=== PATIENT | female | born 1990 | race Caucasian/White ===

== ENCOUNTER 2016-05-29 17:59 | Emergency (ER) | payer OTHER ==
[~2016-05-29] VITALS: Ht 165.1 cm; Wt 56.2 kg
[~2016-05-29 17:59] MED LIST: ACHD5005 PO; DCS100C PO; FRS325T PO; IBP600T1 PO; PREN-115 PO; SULF1TAB35 PO
--- NOTE | 2016-05-29 18:14 | ED GI ---
General Chief Complaint: Abdominal/GI Problems Stated Complaint: VOMITING Source of Information: Patient Exam Limitations: No Limitations History of Present Illness Time Seen By Provider: 18:12 Initial Comments To ER with reports of persistent nausea vomiting since 2 a.m. this morning. She reports diffuse body aches, but no abdominal pain. She denies diarrhea. She has had a cough for about 2 weeks that is productive. She finished a course of Zithromax about one week ago. Prior to that he was on a course of different antibiotics for a urinary tract infection. She is 12 weeks gestation[address] She saw Dr. Liu on 05/25/15 and was told everything looked okay. Up until today she's had no problems with nausea. She denies any vaginal bleeding or abdominal cramping. Timing/Duration: 12 Hours Severity/Quality: Moderate Radiation: No Radiation Associated Symptoms: Nausea/Vomiting Allergies and Home Medications Allergies Coded Allergies: sulfamethoxazole (Verified Allergy, Severe, 05/29/16) trimethoprim (Verified Allergy, Severe, 05/29/16) Home Medications Sulfamethoxazole/Trimethoprim 1 Each Tablet 1 EACH PO BID (Reported) Review of Systems Constitutional: see HPI EENTM: No Symptoms Reported Respiratory: No Symptoms Reported Cardiovascular: No Symptoms Reported Gastrointestinal: See HPI Abdominal PainDenies Constipated, Denies Diarrhea, Nausea Genitourinary: No Symptoms Reported Musculoskeletal: no symptoms reported Skin: no symptoms reported Psychiatric/Neurological: No Symptoms Reported Endocrine: No Symptoms Reported Past Ykrmkmy-Uxxabh-Ydngbw Hx Patient Social History Alcohol Use: Denies Use Recreational Drug Use: No Smoking Status: Never a Smoker 2nd Hand Smoke Exposure: No Recent Foreign Travel: No Contact w/Someone Who Travel: No Recent Hopitalizations: No Immunizations Up To Date Tetanus Booster (TDap): Unknown PED Vaccines UTD: No Date of Influenza Vaccine: Mar 23, 2012 Surgeries HX Surgeries: Yes Surgeries: Section Respiratory Hx Respiratory Disorders: No Cardiovascular Hx Cardiac Disorders: No Neurological Hx Neurological Disorders: No Reproductive System Hx Reproductive Disorders: No Genitourinary Hx Genitourinary Disorders: No Gastrointestinal Hx Gastrointestinal Disorders: No Musculoskeletal Hx Musculoskeletal Disorders: No Endocrine Hx Endocrine Disorders: No HEENT HX ENT Disorders: No Cancer Hx Cancer: No Psychosocial Hx Psychiatric Problems: No Integumentary HX Skin/Integumentary Disorder: No Blood Transfusions Hx Blood Disorders: No Family Medical History Significant Family History: No Pertinent Family Hx Physical Exam Vital Signs VS - Last 72 Hours, by Label 05/29/16 18:07 Temp 97.7 Pulse 109 Resp 18 B/P 124/78 Pulse Ox 98 O2 Delivery Room Air Capillary Refill : General Appearance: WD/WN no apparent distress HEENT: PERRL/EOMI normal ENT inspection Neck: non-tender full range of motion Respiratory: no respiratory distress no accessory muscle use Gastrointestinal: normal bowel sounds non tender soft Extremities: normal range of motion non-tender Neurologic/Psychiatric: alert normal mood/affect oriented x 3 Skin: normal color warm/dry Progress/Results/Core Measures Results/Orders Lab Results Laboratory Tests Test 05/29/16 18:07 Range/Units Alanine Aminotransferase (ALT/SGPT) 38 0-55 U/L Albumin 4.0 3.2-4.5 G/DL Alkaline Phosphatase 79 40-136 U/L Anion Gap 11 5-14 MMOL/L Aspartate Amino Transf (AST/SGOT) 34 5-34 U/L BUN/Creatinine Ratio 14 Basophils # (Auto) 0.0 0.0-0.1 10^3/uL Basophils (%) (Auto) 0 0-10 % Blood Urea Nitrogen 9 7-18 MG/DL Calcium Level 8.5 8.5-10.1 MG/DL Carbon Dioxide Level 21 21-32 MMOL/L Chloride Level 102 98-107 MMOL/L Creatinine 0.64 0.60-1.30 MG/DL Eosinophils # (Auto) 0.0 0.0-0.3 10^3/uL Eosinophils (%) (Auto) 0 0-10 % Estimat Glomerular Filtration Rate > 60 Glucose Level 88 70-105 MG/DL Hematocrit 38 35-52 % Hemoglobin 13.9 11.5-16.0 G/DL Human Chorionic Gonadotropin, Quant [id number] H <5 MIU/ML Lipase 20 8-78 U/L Lymphocytes # (Auto) 1.2 1.0-4.0 X 10^3 Lymphocytes (%) (Auto) 13 12-44 % Mean Corpuscular Hemoglobin 29 25-34 PG Mean Corpuscular Hemoglobin Concent 37 H 32-36 G/DL Mean Corpuscular Volume 80 80-99 FL Mean Platelet Volume 10.1 7.4-10.4 FL Monocytes # (Auto) 0.5 0.0-1.0 X 10^3 Monocytes (%) (Auto) 6 0-12 % Neutrophils # (Auto) 8.1 H 1.8-7.8 X 10^3 Neutrophils (%) (Auto) 82 H 42-75 % Platelet Count 213 130-400 10^3/uL Potassium Level 3.5 L 3.6-5.0 MMOL/L Red Blood Count 4.78 4.35-5.85 10^6/uL Red Cell Distribution Width 13.0 10.0-14.5 % Sodium Level 134 L 135-145 MMOL/L Total Bilirubin 0.9 0.1-1.0 MG/DL Total Protein 7.1 6.4-8.2 G/DL Urine Bacteria TRACE /HPF Urine Bilirubin NEGATIVE NEGATIVE Urine Casts NONE /LPF Urine Clarity VERY CLOUDY H Urine Color YELLOW Urine Crystals NONE /LPF Urine Culture Indicated NO Urine Glucose (UA) NEGATIVE NEGATIVE Urine Ketones 4+ H NEGATIVE Urine Leukocyte Esterase 1+ H NEGATIVE Urine Mucus SMALL H /LPF Urine Nitrite NEGATIVE NEGATIVE Urine Protein 1+ H NEGATIVE Urine RBC NONE /HPF Urine RBC (Auto) NEGATIVE NEGATIVE Urine Specific [place]ester 1.020 1.016-1.022 Urine Squamous Epithelial Cells 10-25 H /HPF Urine Urobilinogen NORMAL NORMAL MG/DL Urine WBC 0-2 /HPF Urine pH 6 5-9 White Blood Count 9.9 4.3-11.0 10^3/uL Micro Results Microbiology 05/29/16 Influenza Types A,B Antigen (LY) - Final, Complete My Orders Orders-ALCON AZAR REDRYING MACHINE OPERATOR Cbc With Automated Diff (05/29/16 18:11) Lipase (05/29/16 18:11) Ua Culture If Indicated (05/29/16 18:11) Hcg,Quantitative (05/29/16 18:11) Comprehensive Metabolic Panel (05/29/16 18:11) Saline Lock/Iv-Start (05/29/16 18:11) Ns Iv 1000 Ml (Sodium Chloride 0.9%) (05/29/16 18:15) Ondansetron Injection (Zofran Injectio (05/29/16 18:15) Influenza A And B Antigens (05/29/16 18:14) Medications Given in ED Current Medications Medications Dose Ordered Sig/Dc Route Start Time Stop Time Status Last Admin Dose Admin Ondansetron HCl 8 mg ONCE ONCE IVP 05/29/16 18:15 2/25/17 18:16 DC 05/29/16 18:17 8 MG Vital Signs/I&O Vital Sign - Last 12Hours 05/29/16 18:07 Temp 97.7 Pulse 109 Resp 18 B/P 124/78 Pulse Ox 98 O2 Delivery Room Air Departure Impression Impression: Primary Impression: Nausea and vomiting Disposition: 01 HOME, SELF-CARE Condition: Stable Departure-Patient Inst. Decision time for Depature: 19:28 Referrals: [facility] (PCP/Family) Primary Care Physician Patient Instructions: Nausea and Vomiting, Adult Add. Discharge Instructions: 1. Return to ER for any concerns 2. Follow up with Dr Liu this week .All discharge instructions reviewed with patient and/or family. Voiced understanding. Copy Copies To 1: CHRISTIAN LIU MD, PETER J APRN May 29, 2016 18:14
[2016-05-29] MEDS ORDERED: NS IV 1000 ML 1,000 ML IV SCH (18:15)
[2016-05-29] MEDS ORDERED: ONDANSETRON 4 MG/2 ML (SDV) Z0FRAN IVP ONE (18:15)
[2016-05-29 18:16] LABS: BASOPHILS % (AUTO) 0 % (0-10); EOSINOPHILS % (AUTO) 0 % (0-10); KETONES,URINE 4+ (NEGATIVE); LEUKOCYTE ESTERASE ,URINE 1+ (NEGATIVE); LYMPHOCYTES # (AUTO) 1.2 X 10^3 (1.0-4.0); LYMPHOCYTES % (AUTO) 13 % (12-44); MEAN CORPUSCULAR HEMOGLOBIN 29 PG (25-34); MEAN CORPUSCULAR HGB CONC 37 G/DL (32-36); MEAN CORPUSCULAR VOLUME 80 FL (80-99); MEAN PLATELET VOLUME 10.1 FL (7.4-10.4); MONOCYTES # (AUTO) 0.5 X 10^3 (0.0-1.0); MONOCYTES % (AUTO) 6 % (0-12); NEUTROPHILS # (AUTO) 8.1 X 10^3 (1.8-7.8); NEUTROPHILS % (AUTO) 82 % (42-75); NITRITE,URINE NEGATIVE (NEGATIVE); PH,URINE 6 (5-9); PLATELET COUNT 213 10^3/uL (130-400); PROTEIN,URINE 1+ (NEGATIVE); RED BLOOD COUNT 4.78 10^6/uL (4.35-5.85); UROBILINOGEN,URINE NORMAL (NORMAL); WHITE BLOOD COUNT 9.9 10^3/uL (4.3-11.0)
[2016-05-29 18:30] LABS: BILIRUBIN,URINE NEGATIVE (NEGATIVE); WBC,URINE 0-2 /HPF
[2016-05-29 18:32] LABS: ALANINE AMINOTRANSFERASE 38 U/L (0-55); ANION GAP 11 MMOL/L (5-14); ASPARTATE AMINO TRANSFERASE 34 U/L (5-34); BILIRUBIN,TOTAL 0.9 MG/DL (0.1-1.0); BLOOD UREA NITROGEN 9 MG/DL (7-18); BUN/CREATININE RATIO 14; CALCIUM 8.5 MG/DL (8.5-10.1); CARBON DIOXIDE 21 MMOL/L (21-32); CHLORIDE 102 MMOL/L (98-107); CREATININE SERUM 0.64 MG/DL (0.60-1.30); GFR ESTIMATED > 60; GLUCOSE 88 MG/DL (70-105); LIPASE 20 U/L (8-78); POTASSIUM 3.5 MMOL/L (3.6-5.0); SODIUM 134 MMOL/L (135-145); TOTAL PROTEIN 7.1 G/DL (6.4-8.2)
[2016-05-29 19:42] VITALS: BP 127/74
== END 2016-05-29 19:42 | disposition home or self-care (01) ==
LOC: EDUNIT# 17:59 → ER 18:01
DX: O21.0 Mild hyperemesis gravidarum (principal); Z3A.12 12 weeks gestation of pregnancy
CPT/HCPCS: 36415; 80053; 81000; 83690; 84702; 85025; 87804; 96361; 96374

== ENCOUNTER 2021-02-17 05:33 | Outpatient (CLI) | payer OTHER ==
[~2021-02-17] VITALS: Ht 165.1 cm; Wt 66.8 kg
[~2021-02-17 05:33] MED LIST changes: -SULF1TAB35 PO; +SULF1TAB38 PO
[2021-02-17] MEDS ORDERED: PNV1TABL94 PO (12:38)
[2021-02-24] MEDS ORDERED: ACHD5005 PO (12:26)
[2021-02-24] MEDS ORDERED: IBUP-844 PO (12:26)
[2021-02-24] MEDS ORDERED: DOCU100C37 PO (12:26)
== END 2021-02-17 12:40 ==
LOC: PREOP 05:33
PROVIDERS: ATTEND Obstetrics & Gynecology
DX: Z01.818 Encounter for other preprocedural examination (principal); O34.219 Maternal care for unspecified type scar from previous cesarean delivery; Z3A.00 Weeks of gestation of pregnancy not specified

== ENCOUNTER 2021-02-24 09:54 | Inpatient (IN) | payer OTHER ==
[~2021-02-24] VITALS: Ht 168 cm; Wt 68.0 kg
[2021-02-24] VITALS (9 sets, daily range): BP systolic 97–122; BP diastolic 54–83
[~2021-02-24 09:54] MED LIST changes: +PNV1TABL94 PO
[2021-02-24] MEDS ORDERED: FAMOTIDINE 20MG/2ML IV (PEPCID) IV ONE (10:15)
[2021-02-24] MEDS ORDERED: METOCLOPRAMIDE INJ 10 MG/2 ML (REGLAN) IV ONE (10:15)
[2021-02-24] MEDS ORDERED: CITRIC ACID/SOB CIT (BICITRA) 30 ML UDC PO ONE (10:15)
[2021-02-24] MEDS ORDERED: LACTATED RINGERS 1,000 ML IV PRN (10:15)
[2021-02-24] MEDS ORDERED: ceFAZolin 2 GM IV Premixed 50 ML IV ONE (10:15)
[2021-02-24 10:38] LABS: BASOPHILS % (AUTO) 0 % (0-10); EOSINOPHILS % (AUTO) 0 % (0-10); HEMATOCRIT 36 % (35-52); HEMOGLOBIN 12.9 g/dL (11.5-16.0); LYMPHOCYTES % (AUTO) 24 % (12-44); MEAN CORPUSCULAR HEMOGLOBIN 30 pg (25-34); MEAN CORPUSCULAR HGB CONC 36 g/dL (32-36); MEAN CORPUSCULAR VOLUME 84 fL (80-99); MEAN PLATELET VOLUME 11.5 fL (9.0-12.2); MONOCYTES # (AUTO) 0.5 10^3/uL (0.0-1.0); MONOCYTES % (AUTO) 6 % (0-12); NEUTROPHILS # (AUTO) 5.7 10^3/uL (1.8-7.8); NEUTROPHILS % (AUTO) 69 % (42-75); PLATELET COUNT 254 10^3/uL (130-400); WHITE BLOOD COUNT 8.3 10^3/uL (4.3-11.0)
[2021-02-24] MEDS ORDERED: ROPIVACAINE 5MG/ML 30ML VIAL ONE (11:53)
[2021-02-24] MEDS ORDERED: fentaNYL INJ 100 MCG/2 ML AMP ONE (11:54)
[2021-02-24] MEDS ORDERED: ONDANSETRON 4 MG/2 ML (SDV) Z0FRAN IVP PRN ×2 (12:15→12:30)
[2021-02-24] MEDS ORDERED: HYDROmorphone 2 MG/ML VIAL (DILAUDID) IV ONE (12:15)
--- NOTE | 2021-02-24 12:24 | History & Physical-OB ---
OB - Chief Complaint & HPI Date/Time Date of Admission: Date of Admission: Feb 24, 2021 at 09:54 Date seen by a Provider: Feb 24, 2021 Time Seen by a Provider: 12:05 Chief Complaint/History OB-Reason for Admission/Chief: Section Hx : 3 Hx Para: 2 Expected Date of Delivery: Mar 03, 2021 Gestational Age in Weeks: 39 Gestational Age in Days: 0 Indication for : desires repeat Admission Nurse Assessment Rev: Yes Allergies and Home Medications Allergies Coded Allergies: sulfamethoxazole (Verified Allergy, Severe, 05/29/16) trimethoprim (Verified Allergy, Severe, 05/29/16) Patient Home Medication List Home Medication List Reviewed: Yes Pnv No.121/Iron/Folic Acid ( Multivitamin Tablet) 1 Each Tablet, 1 EACH PO DAILY, (Reported) Entered as Reported by: ELIANE FOFANA on 02/17/21 1238 Discontinued Medications Sulfamethoxazole/Trimethoprim (Bactrim Ds Tablet) 1 Each Tablet, 1 EACH PO BID, (Reported) Discontinued Reason: No Longer Taking Entered as Reported by: VIANCA DAVIES on 01/12/15 2223 OB - History Hx of Present Care: Yes Ultrasounds: Normal mid trimester US Obstetrical Complications: None Medical Complications: None Obstetrical History Hx Termination: No Hx Multiple Gestation: No Hx Stillbirth: No Hx Complication: No Hx Induced Hypertens: No Hx Maternal Gestational Diabet: No Delivery History Hx Blood Disorders: No Patient Past Medical History n/a Social History/Family History 2nd Hand Smoke Exposure: No Immunizations Hepatitis A: No Hepatitis B: No Tetanus Booster (TDap): Unknown Date of Influenza Vaccine: Mar 23, 2012 OB - Admission Exam Physical Exam Vitals: Vital Signs 02/24/21 10:05 Temp 36.6 Pulse 86 Resp 18 Pulse Ox 98 O2 Delivery Room Air HEENT: NCAT Heart: Rhythm Normal Lungs: Clear Abdomen: Gravid Extremities: Normal Reflexes: Normal Heart Rate: 130's Accelerations: Accelerations Present Decelerations: No Decelerations Short Term Variability: Present Missile Pad Mechanic Variability: Average (6-25) Labs Laboratory Tests Test 02/24/21 10:10 Range/Units White Blood Count 8.3 4.3-11.0 10^3/uL Red Blood Count 4.30 3.80-5.11 10^6/uL Hemoglobin 12.9 11.5-16.0 g/dL Hematocrit 36 35-52 % Mean Corpuscular Volume 84 80-99 fL Mean Corpuscular Hemoglobin 30 25-34 pg Mean Corpuscular Hemoglobin Concent 36 32-36 g/dL Red Cell Distribution Width 11.9 10.0-14.5 % Platelet Count 254 130-400 10^3/uL Mean Platelet Volume 11.5 9.0-12.2 fL Immature Granulocyte % (Auto) 1 % Neutrophils (%) (Auto) 69 42-75 % Lymphocytes (%) (Auto) 24 12-44 % Monocytes (%) (Auto) 6 0-12 % Eosinophils (%) (Auto) 0 0-10 % Basophils (%) (Auto) 0 0-10 % Neutrophils # (Auto) 5.7 1.8-7.8 10^3/uL Lymphocytes # (Auto) 2.0 1.0-4.0 10^3/uL Monocytes # (Auto) 0.5 0.0-1.0 10^3/uL Eosinophils # (Auto) 0.0 0.0-0.3 10^3/uL Basophils # (Auto) 0.0 0.0-0.1 10^3/uL Immature Granulocyte # (Auto) 0.1 0.0-0.1 10^3/uL OB - Assessment/Plan/Diagnosis Assessment Assessment: section Admission Dx 30 yo @ 39 weeks Previous x 2 Admission Status: Inpatient Order (span 2 midnights) Reason for Inpatient Admission: Repeat Plan Plan: Section AYSE ZAMORA DO Feb 24, 2021 12:24
--- NOTE | 2021-02-24 12:25 | Discharge Inst-Women's Service ---
Discharge Inst-Women's Serv Depart Medication/Instructions New, Converted or Re-Newed RX: RX on Chart Final Diagnosis POD 2 RLTCS Problems Reviewed?: Yes Consults/Follow Up Additional Follow Up: Yes Orders/Referrals Dr. Dawson in 7-10 days and in 6 weeks Activity Activity: Activity as Tolerated Driving Instructions: No Driving for 1 Week NO SMOKING: NO SMOKING Nothing Inside Vagina: No Douching, No [place], No Tampons Diet Discharge Diet: No Restrictions Symptoms to Report to : Bleeding Excessive, Pain Increased, Fever Over 101 Degrees F, Vaginal Bleeding Increase, Questions/Concerns For Any Problems or Questions: Contact Your Physician Skin/Wound Care Infection Signs and Symptoms: Increased Redness, Foul Odor of Wound, Increased Drainage, Skin Itchy or Has a Rash, Increased Swelling, Temperature Above 101 F Operative Area Clean and Dry: Keep Incision Clean/Dry Stitches/[place]/Dermabond: Dermabond, Care of Stitches Bathing Instructions: AYSE Nieto DO Feb 24, 2021 12:25
[2021-02-24] MEDS ORDERED: IBUP-844 PO (12:26)
[2021-02-24] MEDS ORDERED: ACHD5005 PO (12:26)
[2021-02-24] MEDS ORDERED: DOCU100C37 PO (12:26)
[2021-02-24] MEDS ORDERED: MEASLES,MUMPS,RUBELLA 1 EA INJ SC SCH (12:30)
[2021-02-24] MEDS ORDERED: NALOXONE 0.4 MG/ML 1 ML (NARCAN) VIAL IV PRN (12:30)
[2021-02-24] MEDS ORDERED: TETANUS,DIPTH,PERTUSS P/F (BOOSTRIX) 0.5 ML VIAL IM SCH (12:30)
[2021-02-24] MEDS ORDERED: ONDANSETRON 4 MG/2 ML (SDV) Z0FRAN ONE (12:52)
[2021-02-24] MEDS ORDERED: KETOROLAC 30 MG/ML VIAL ONE (12:53)
[2021-02-24] MEDS: OXYTOCIN PRE-MIX DRIP 500 ML IV SCH ×2 (13:42→17:37)
[2021-02-24] MEDS: KETOROLAC 30 MG/ML VIAL IV SCH (18:41)
[2021-02-24] MEDS: DOCUSATE SODIUM 100 MG (COLACE) CAP PO SCH (21:10)
--- NOTE | 2021-02-24 21:18 | OPERATIVE REPORT ---
DATE OF SERVICE: PREOPERATIVE DIAGNOSES: 1. A 30-year-old G3, P2 at 39 weeks gestation. 2. Previous section. POSTOPERATIVE DIAGNOSES: 1. A 30-year-old G3, P2 at 39 weeks gestation. 2. Previous section. PROCEDURE: Repeat low transverse section. SURGEON: Danny Zamora DO ANESTHESIA: Spinal. SWING FRAME GRINDER OPERATOR: Christiana Ruiz DNP, was necessary for manipulation and retraction throughout the procedure. ESTIMATED BLOOD LOSS: 600 mL. URINE OUTPUT: 225 mL clear at the end of the procedure. FLUIDS: 500 mL lactated Ringer's solution. FINDINGS: A live male weighing 7 pounds 14 ounces, Apgars of 9 and 9. Grossly normal appearing uterus, bilateral fallopian tubes and ovaries. SPECIMEN SENT: None. INDICATIONS FOR PROCEDURE: This 30-year-old female is a patient who had sought care in our office. Her care was uncomplicated with the exception of wanting to proceed with repeat . She was scheduled at 39 weeks. Risks of the procedure were discussed with the patient in detail both in her preoperative consultation and in the preoperative area prior to surgery. After all her questions were answered, consent was obtained and the patient was taken to the operating room. OPERATIVE REPORT IN DETAIL: Once in the operating room, spinal analgesia was found to be adequate, placed in supine position with leftward tilt, prepped and draped in normal sterile fashion. A timeout was performed and anesthesia was tested. I then proceeded with making a Pfannenstiel skin incision through the previously existing scar using a knife and carried down to underlying fascia using Bovie cautery. The fascial incision extended laterally using Bovie cautery. Superior aspect of fascial incision was then grasped with Elisa clamps, tented up and dissected off the underlying rectus muscles. The inferior aspect of fascial incision was then grasped with Elisa clamps, tented up and dissected off the underlying rectus muscles. The rectus muscles were dissected down the midline using sharp dissection, which exposed the peritoneum, which I entered bluntly and extended using blunt traction. An Naldo ring retractor was placed in the peritoneal incision, which offered excellent lateral sidewall retraction. I identified the lower uterine segment, which was found to be thinned out and make a low transverse incision to the vesicouterine peritoneum and bluntly dissected off the lower uterine segment, creating a bladder flap. I then proceeded with my myotomy until membranes were visualized, at which point I extended the uterine incision laterally and superiorly using bandage scissors. Amniotomy was then performed using an Allis clamp. Clear fluid was noted. The infant was found in vertex presentation. With gentle fundal pressure, the infant's head was elevated up to the incision where it was delivered through the incision. The nares and oropharynx were bulb suctioned. Nuchal cord was reduced x1. Anterior and posterior shoulders were delivered. The was then brought to the operative field with cord doubly clamped and cut and infant was handed off to waiting nurses in attendance. Cord blood was collected. Three-vessel cord with intact placenta was delivered spontaneously thereafter. IV Pitocin is initiated to facilitate uterine contraction. Uterine fundus confirmed by manual massage. The uterus was then exteriorized and cleared of all endometrial clots and debris. I then proceeded with closing the uterine incision using 0 Vicryl suture in running locked fashion. Second layer of imbricating 0 Monocryl was placed. Excellent hemostasis was noted after doing this. I then placed the uterus back in the pelvis and copiously irrigated the pelvis using normal saline. Once again, there was no active bleeding noted from any of my dissection planes. I placed Interceed antiadhesive over my low transverse incision. I removed the Naldo ring retractor and proceeded with closing the peritoneum using 3-0 Vicryl suture in running fashion. The rectus muscle reapproximated using 3-0 Vicryl suture in interrupted fashion. The fascia was reapproximated using 0 Vicryl suture in a running fashion. Subcutaneous tissue is very thin; therefore, I just proceeded with closing the skin using 4-0 Monocryl running subcuticular. Dermabond was applied to incision and sterile dressing with adhesive white tape. The patient tolerated the procedure well and sent to recovery area in stable condition. Lap and sponge counts were correct at the end of the procedure. Instrument counts correct as well. Two grams of Ancef given preoperatively for infection prophylaxis. Job ID: [id number] DocumentID: [id number] Dictated Date: 02/24/2021 13:32:27 Ed Case Manager Date: 02/24/2021 21:17:17 Dictated By: DANNY ZAMORA DO
[2021-02-24] MEDS: HYDROcodone/APAP 5 MG/325 MG (LORTAB) TAB PO PRN (23:27)
[2021-02-25] MEDS: KETOROLAC 30 MG/ML VIAL IV SCH ×2 (01:26→06:54)
[2021-02-25 04:10] VITALS: BP 120/58
[2021-02-25] MEDS: HYDROcodone/APAP 5 MG/325 MG (LORTAB) TAB PO PRN ×3 (05:29→20:29)
[2021-02-25 06:55] LABS: BASOPHILS % (AUTO) 0 % (0-10); EOSINOPHILS % (AUTO) 0 % (0-10); HEMATOCRIT 31 % (35-52); HEMOGLOBIN 10.9 g/dL (11.5-16.0); LYMPHOCYTES # (AUTO) 2.2 10^3/uL (1.0-4.0); LYMPHOCYTES % (AUTO) 24 % (12-44); MEAN CORPUSCULAR HEMOGLOBIN 30 pg (25-34); MEAN CORPUSCULAR HGB CONC 35 g/dL (32-36); MEAN CORPUSCULAR VOLUME 87 fL (80-99); MEAN PLATELET VOLUME 11.8 fL (9.0-12.2); MONOCYTES # (AUTO) 0.5 10^3/uL (0.0-1.0); MONOCYTES % (AUTO) 5 % (0-12); NEUTROPHILS # (AUTO) 6.4 10^3/uL (1.8-7.8); NEUTROPHILS % (AUTO) 69 % (42-75); PLATELET COUNT 191 10^3/uL (130-400); WHITE BLOOD COUNT 9.3 10^3/uL (4.3-11.0)
--- NOTE | 2021-02-25 07:26 | Postpartum Progress Note ---
Note Note Day # 1 Subjective: Patient is without complaints. Ambulating, voiding. Tolerating a regular diet without nausea or vomiting. Normal lochia. Pain is well controlled with oral pain medications. Objective: Physical Exam: General - Alert and oriented, no apparent distress Abdomen - Soft, appropriately tender to palpation, non-distended, fundus firm at umbilicus Extremities - no edema, negative Joaquin's bilaterally Incision c/d/i Assessment: POD 1 RLTCS Acute blood loss anemia Plan: Routine care. Encourage breast feeding. Encourage ambulation. Ferrous sulfate supplementation. Plan for discharge tomorrow Vitals - Labs Vital Signs - I&O Vital Signs Date Time Temp Pulse Resp B/P (MAP) Pulse Ox O2 Delivery O2 Flow Rate FiO2 02/25/21 04:10 36.4 86 18 120/58 (78) 97 Room Air 02/24/21 23:04 36.8 62 18 100/55 (70) 97 Room Air 02/24/21 18:45 36.7 67 18 122/71 (88) 98 Room Air 02/24/21 15:09 36.2 65 18 106/59 (75) 97 Room Air 02/24/21 14:06 36 18 113/64 (80) 98 Room Air 02/24/21 13:51 Room Air 02/24/21 13:51 36 18 106/72 (83) 100 Room Air 02/24/21 13:36 Room Air 02/24/21 13:36 36.1 20 105/76 (86) 97 Room Air 02/24/21 13:21 36.3 18 97/54 (68) 97 Room Air 02/24/21 13:21 Room Air 02/24/21 13:06 Room Air 02/24/21 13:06 36.0 18 104/55 (71) 97 Room Air 02/24/21 10:05 36.6 86 18 98 Room Air I & O 02/25/21 07:00 Intake Total 1050 ml Output Total 225 ml Balance 825 ml Labs Laboratory Tests 02/24/21 10:10: White Blood Count 8.3, Red Blood Count 4.30, Hemoglobin 12.9, Hematocrit 36, Mean Corpuscular Volume 84, Mean Corpuscular Hemoglobin 30, Mean Corpuscular Hemoglobin Concent 36, Red Cell Distribution Width 11.9, Platelet Count 254, Mean Platelet Volume 11.5, Immature Granulocyte % (Auto) 1, Neutrophils (%) (Auto) 69, Lymphocytes (%) (Auto) 24, Monocytes (%) (Auto) 6, Eosinophils (%) (Auto) 0, Basophils (%) (Auto) 0, Neutrophils # (Auto) 5.7, Lymphocytes # (Auto) 2.0, Monocytes # (Auto) 0.5, Eosinophils # (Auto) 0.0, Basophils # (Auto) 0.0, Immature Granulocyte # (Auto) 0.1 02/25/21 06:00: White Blood Count 9.3, Red Blood Count 3.58L, Hemoglobin 10.9L, Hematocrit 31L, Mean Corpuscular Volume 87, Mean Corpuscular Hemoglobin 30, Mean Corpuscular H emoglobin Concent 35, Red Cell Distribution Width 12.4, Platelet Count 191, Mean Platelet Volume 11.8, Immature Granulocyte % (Auto) 1, Neutrophils (%) (Auto) 69, Lymphocytes (%) (Auto) 24, Monocytes (%) (Auto) 5, Eosinophils (%) (Auto) 0, Basophils (%) (Auto) 0, Neutrophils # (Auto) 6.4, Lymphocytes # (Auto) 2.2, Monocytes # (Auto) 0.5, Eosinophils # (Auto) 0.0, Basophils # (Auto) 0.0, Immature Granulocyte # (Auto) 0.1 AYSE ZAMORA DO Feb 25, 2021 07:26
--- NOTE | 2021-02-25 07:37 | Anesthesia-Regional Post-Op ---
Regional Patient Condition Mental Status: Alert, Oriented x3 Circulation: Same as Pre-Op Headache: Absent Sensation: Full Recovery Motor Block: Absent Post Op Complications Complications None Follow Up Care/Instructions Patient Instructions None needed. Anesthesia/Patient Condition Patient is doing well, no complaints, stable vital signs, no apparent adverse anesthesia problems. No complications reported per nursing. TARAS LEONARD CRNA Feb 25, 2021 07:37
[2021-02-25 09:10] VITALS: BP 101/60
[2021-02-25] MEDS: DOCUSATE SODIUM 100 MG (COLACE) CAP PO SCH ×2 (11:58→20:29)
[2021-02-25 13:50] VITALS: BP 109/63
[2021-02-25] MEDS: CATHETER FLUSH 10 ML SYR IV SCH ×2 (16:00→22:00)
[2021-02-25] MEDS: IBUPROFEN 600 MG (MOTRIN) TAB PO SCH (16:38)
[2021-02-25 22:20] VITALS: BP 110/64
[2021-02-26] MEDS: IBUPROFEN 600 MG (MOTRIN) TAB PO SCH ×2 (00:33→06:40)
[2021-02-26 03:40] VITALS: BP 105/59
[2021-02-26] MEDS: CATHETER FLUSH 10 ML SYR IV SCH (06:00)
--- NOTE | 2021-02-26 06:29 | Postpartum Progress Note ---
Note Note Day # 2 Subjective: Patient is without complaints. Ambulating, voiding. Tolerating a regular diet without nausea or vomiting. Normal lochia. Pain is well controlled with oral pain medications. Objective: Physical Exam: General - Alert and oriented, no apparent distress Abdomen - Soft, appropriately tender to palpation, non-distended, fundus firm at umbilicus Extremities - no edema, negative Joaquin's bilaterally Assessment: POD 2 RLTCS Acute blood loss anemia Plan: Routine care. Encourage breast feeding. Encourage ambulation. Ferrous sulfate supplementation. Plan for discharge today Vitals - Labs Vital Signs - I&O Vital Signs Date Time Temp Pulse Resp B/P (MAP) Pulse Ox O2 Delivery O2 Flow Rate FiO2 02/26/21 03:40 35.7 58 16 105/59 (74) 99 Room Air 02/25/21 22:20 36.8 82 16 110/64 (79) 98 Room Air 02/25/21 13:50 36.6 70 16 109/63 (78) 97 Room Air 02/25/21 09:10 36.1 63 16 101/60 (74) 98 Room Air AYSE ZAMORA DO Feb 26, 2021 06:29
[2021-02-26 10:08] VITALS: BP 108/71
[2021-02-26] MEDS: DOCUSATE SODIUM 100 MG (COLACE) CAP PO SCH (10:08)
== END 2021-02-26 12:39 | disposition home or self-care (01) | DRG 787 ==
LOC: LDRP 09:54
PROVIDERS: ADMIT Obstetrics & Gynecology; ATTEND Obstetrics & Gynecology
PROC: 10D00Z1 Extraction of Products of Conception, Low, Open Approach (ICD-10-PCS; principal; 2021-02-24 12:18)
DX: O34.211 Maternal care for low transverse scar from previous cesarean delivery (principal); D62 Acute posthemorrhagic anemia; Z3A.39 39 weeks gestation of pregnancy; Z37.0 Single live birth; O69.81X0 Labor and delivery complicated by cord around neck, without compression, not applicable or unspecified; Z88.2 Allergy status to sulfonamides; O90.81 Anemia of the puerperium
CPT/HCPCS: 36415; 85025; 86850; 86900; 86901; 94664